=== PATIENT | female | born 1980 | race Caucasian/White ===

== ENCOUNTER → 2025-05-10 12:49 | Outpatient (CLI) | payer OTHER, SELFPAY ==
--- NOTE | 2025-05-10 12:50 | DI.MRI.S_ITS ---
4PROCEDURE: MR ANKLE LT WO CON INDICATIONS: ankle instability TECHNIQUE: Noncontrast sagittal T1 spin echo and T2 fast spin echo with fat saturation, axial proton density fast spin echo and T2 fast spin echo with fat saturation, coronal T1 spin echo and T2 fast spin echo with fat saturation through the ankle/hindfoot. COMPARISON: None. FINDINGS: Image quality: Excellent. Osseous structures: No fracture. No dislocation. No suspicious marrow replacing process. No focal bone marrow contusion. Intact articular cartilage in the tibiotalar, subtalar, Chopart joints and midfoot. No high-grade, full-thickness articular cartilage loss. No significant joint effusion within the foot. Moderate size ganglion cyst communicates with the posterior tibiotalar recess, and measures up to 14 mm. This extends into the deep Kager's fat pad. Ligaments: Intact syndesmotic ligaments. 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 The remnant ligament fibers are not seen. Chronic scarring of the posterior talofibular ligament. Chronic scarring and degeneration of the proximal calcaneofibular ligament. No focal tear of the superficial or deep deltoid ligament. Intact spring ligament complex and tibiospring ligament. No focal tear of the interosseous or bifurcate ligament. Intact Lisfranc ligament. Muscles / Tendons: Intact anterior extensor tendons. Intact tibialis posterior, flexor digitorum, and flexor hallucis longus. Mild tendinosis of the retro malleolar peroneus longus. Mild tendinosis of the distal Achilles tendon. Plantar fascia: Mild thickening of the central band of the plantar fascia with a small calcaneal spur. Miscellaneous: Preserved fat in sinus tarsi. The superficial soft tissues are unremarkable. Neurovascular: Unremarkable. IMPRESSION: 1. Chronic tear of the anterior talofibular ligament with scarring and degeneration of the posterior talofibular ligament and proximal calcaneofibular ligament. 2. Mild tendinosis of the retro malleolar peroneus longus. 3. Mild tendinosis of the distal Achilles tendon. 4. Mild thickening of the central band of the plantar fascia, correlate for symptoms of plantar fasciitis. Dictated by: Jayy Rogel M.D. on 05/10/2025 at 17:05 Approved by: Jayy Rogel M.D. on 05/10/2025 at 17:10
== END ==
LOC: MRI 12:49
PROVIDERS: PCP Nurse Practitioner Family; Referring Provider Podiatrist; Visit Provider Podiatrist
DX: S93.492A Sprain of other ligament of left ankle, initial encounter (principal); M25.372 Other instability, left ankle; M67.972 Unspecified disorder of synovium and tendon, left ankle and foot
CPT/HCPCS: 73721